=== PATIENT | male | born 1975 | race Caucasian/White ===

== ENCOUNTER 2020-02-13 11:46 | Outpatient (CLI) | payer BC, SELFPAY ==
[2020-02-13 12:36] LABS: SARS-CoV-2 Ag Positive (Negative)
== END 2020-02-13 11:47 | disposition home or self-care (01) ==
LOC: CHSLAB 11:53
PROVIDERS: PCP Internal Medicine; Visit Provider Internal Medicine
DX: U07.1 COVID-19 (principal)
CPT/HCPCS: 87426

== ENCOUNTER 2020-02-14 16:30 | Emergency (ER) | payer BC, SELFPAY ==
--- NOTE | ~2020-02-14 | CT_ITS ---
EXAMINATION: CT brain wo con DATE: 02/14/2020 18:22 INDICATION: Right eye swelling. TECHNIQUE: Computed tomography (CT) of the head was performed without intravenous contrast. Sagittal and coronal reconstructions were performed. The mA was adjusted according to patient size. Iterative reconstruction technique was employed. The dose-length product was 605.33 mGy-cm. COMPARISON: None FINDINGS: No acute intracranial hemorrhage, acute infarction or abnormal extra axial fluid collection. Ventricl es are normal and symmetric. No mass/mass effect. Right vertebral artery is dominant. Old right orbit al blowout fracture with depression of a portion of the inferior orbital wall which appears unchanged since CT neck dated 03/06/2017. Orbits are otherwise normal. Hyperpneumatized right frontal sinus. R emainder of the paranasal sinuses and the bilateral middle ear cavities and mastoid air cells are dory ar. IMPRESSION: 1. 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 Otherwise unremarkable study with no acute intracranial or intraorbital process. Reviewed, dictated and finalized at location . [employer] IMPRESSION: 1. 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 Otherwi se unremarkable study with no acute intracranial or intraorbital process.
[2020-02-14 17:35] VITALS: BP 145/82; PULSE 63; RESP 20; TEMP 36.8; O2SAT 100
--- NOTE | 2020-02-14 19:13 | ED.EYEPROB ---
HPI - Eye Problem General Chief complaint: Eye Problems Stated complaint: Eye pain Time Seen by Provider: 02/14/20 17:45 Source: patient Mode of arrival: ambulatory Limitations: no limitations History of Present Illness HPI Narrative: Patient comes in with a ptosis of the right eye. Severity is mild to moderate. This has developed over the past 2 days, and is ongoing. He come in with these concerns. Nothing has changed with him, although he has had a headache, and was diagnosed with Covid recently. Context: other (recent covid diagnosis. ) Related Data Home Medications Medication Instructions Recorded Confirmed albuterol sulfate [Ventolin HFA] 1 - 2 puff INHALATION QID 02/14/20 02/14/20 atenolol 25 mg PO DAILY 02/14/20 02/14/20 losartan-hydrochlorothiazide 1 tablet PO DAILY 02/14/20 02/14/20 montelukast 10 mg PO DAILY 02/14/20 02/14/20 omeprazole 40 mg PO DAILY 02/14/20 02/14/20 simvastatin 20 mg PO DAILY 02/14/20 02/14/20 venlafaxine 75 mg PO DAILY 02/14/20 02/14/20 Allergies Allergy/AdvReac Type Severity Reaction Status Date / Time No Known Allergies Allergy Unverified 09/09/11 12:17 Review of Systems Constitutional: Constitutional: Reports no additional constitutional complaints Eyes: Eyes: Reports no additional eye complaints ENT: Reports system reviewed and no additional complaints, except as documented Cardiovascular: Cardiovascular: Reports no additional cardiovascular complaints Respiratory: Respiratory: Reports no additional respiratory complaints Gastrointestinal: Gastrointestinal: Reports no additional gastrointestinal complaints Genitourinary: Genitourinary: Reports no additional male genitourinary complaints Musculoskeletal: Musculoskeletal: Reports no additional musculoskeletal complaints Integumentary/Breasts: Skin/Breast: Reports system reviewed and no additional complaints, except as docu Neurologic: Reports system reviewed and no additional complaints, except as documented Psychiatric: Psychiatric: Reports no additional psychiatric complaints Endocrine: Endocrine: Reports no additional endocrine complaints Hematologic/Lymphatic: Hematologic/Lymphatic: Reports no additional hematologic/lymphatic complaints Allergic/Immunologic: Allergic/Immunologic: Reports no additional allergic/immunologic complaints PMFSH Past Medical History Medical History Hyperlipidemia Hypertension Surgical History Surgical History No significant past surgical history Exam Const: General: no acute distress HENMT: Other: Mild ptosis on right side. Eyes: Conjunctivae: conjunctivae normal EOM: EOMs intact bilaterally Other: normal acuity, Chest: Chest palpation & inspection: normal inspection of the chest Resp: Effort & Inspection: normal respiratory effort Auscultation: clear to auscultation bilaterally Cardio: Rate: regular rate Rhythm: regular rhythm GI: Auscultation: normal bowel sounds Back/Spine/Pelvis: Back: no CVA tenderness Skin: General skin exam: normal color Neuro: General: moves all extremities Other: No focal weakness in any other area, forehead or face noted. Extrem: General: normal to inspection Psych: Appearance: grossly normal Mental Status: mental status grossly normal Course Course Emergency Course: Ct head was reviewed. I discussed with him options. He decided on trying Dexamethasone 6mg daily for the next few days to see if that will help with the ptosis. He has Covid now, and the dexamethasone may help the Covid as well. We will send him home with 6 days of dexamethasone. Vital Signs Vital signs: Vital Signs Temperature 36.8 C 02/14/20 17:35 Pulse Rate 63 02/14/20 17:35 Respiratory Rate 20 02/14/20 17:35 Blood Pressure 145/82 H 02/14/20 17:35 Pulse Oximetry 100 02/14/20 17:35 Temperature 36.8 C 02/14/20 17:35
[2020-02-14 19:20] VITALS: RESP 16
== END 2020-02-14 19:20 | disposition home or self-care (01) ==
PROVIDERS: Emergency Provider Emergency Medicine; PCP Internal Medicine
DX: G51.0 Bell's palsy (principal)
CPT/HCPCS: 70450; 99283; 99284

== ENCOUNTER 2021-03-27 11:20 | Outpatient (CLI) | payer BC, SELFPAY ==
[2021-03-27 12:00] LABS: Influenza Control Valid (Valid)
[2021-03-27 12:06] LABS: SARS-CoV-2 Ag Positive (Negative)
== END 2021-03-27 11:21 | disposition home or self-care (01) ==
LOC: CHSLAB 11:22
PROVIDERS: PCP Internal Medicine; Visit Provider Internal Medicine
DX: U07.1 COVID-19 (principal); J06.9 Acute upper respiratory infection, unspecified
CPT/HCPCS: 87081; 87426; 87804; 87880; C9803

== ENCOUNTER 2023-04-04 02:17 | Emergency (ER) | payer BC, SELFPAY ==
[2023-04-04 02:17] VITALS: BP 159/99; PULSE 106; RESP 20; TEMP 36.8; O2SAT 96
--- NOTE | 2023-04-04 02:35 | ED.GENADULT ---
HPI - General Adult General Chief complaint: Unspecified Stated complaint: rash Source: patient Mode of arrival: ambulatory Limitations: no limitations History of Present Illness HPI narrative: Patient is a 47 year old male with a significant PMH that presents today bc of a rash on his face. He gets small fever blisters' on areas around his mouth and uses some strange lotion for this and it apparently does not really help because it takes them 10 days to go away. He was given mupericin ointment this morning at urgent care and this made his face break out and more blisters appeared. He is most likely allergic to this. Onset (ago): day(s) Location: face Radiation: non-radiation Severity: mild Quality: burning Pain Consistency: constant Relieving factors: none Exacerbating factors: none Associated symptoms: denies other symptoms Treatments prior to arrival: none Related Data Home Medications Medication Instructions Recorded Confirmed albuterol sulfate 90 mcg/actuation 1 - 2 puff inhalation QID 02/14/20 04/04/23 aerosol inhaler (Ventolin HFA) atenolol 25 mg tablet 25 mg PO DAILY 02/14/20 04/04/23 losartan 50 mg-hydrochlorothiazide 1 tablet PO DAILY 02/14/20 04/04/23 12.5 mg tablet montelukast 10 mg tablet 10 mg PO DAILY 02/14/20 04/04/23 omeprazole 40 mg capsule,delayed 40 mg PO DAILY 02/14/20 04/04/23 release simvastatin 20 mg tablet 20 mg PO DAILY 02/14/20 04/04/23 venlafaxine 75 mg capsule,extended 75 mg PO DAILY 02/14/20 04/04/23 release 24 hr Allergies Allergy/AdvReac Type Severity Reaction Status Date / Time No Known Allergies Allergy Unverified 09/09/11 12:17 Review of Systems Review of Systems: All systems reviewed & are unremarkable except as noted in HPI and below Constitutional: Constitutional: Reports no additional constitutional complaints Eyes: Eyes: Reports no additional eye complaints ENT: Comments: small mild few blisters around the mouth, do not resemble rsv Cardiovascular: Cardiovascular: Reports no additional cardiovascular complaints Respiratory: Respiratory: Reports no additional respiratory complaints Gastrointestinal: Gastrointestinal: Reports no additional gastrointestinal complaints Genitourinary: Genitourinary: Reports no additional male genitourinary complaints Musculoskeletal: Musculoskeletal: Reports no additional musculoskeletal complaints Integumentary/Breasts: Skin/Breast: Reports system reviewed and no additional complaints, except as docu Neurologic: Reports system reviewed and no additional complaints, except as documented Psychiatric: Psychiatric: Reports no additional psychiatric complaints Endocrine: Endocrine: Reports no additional endocrine complaints Hematologic/Lymphatic: Hematologic/Lymphatic: Reports no additional hematologic/lymphatic complaints Allergic/Immunologic: Allergic/Immunologic: Reports no additional allergic/immunologic complaints PMFSH Past Medical History Medical History Hyperlipidemia Hypertension Surgical History Surgical History No significant past surgical history Exam Const: General: cooperative and healthy appearing Nutritional Appearance: average body habitus Orientation/consciousness: oriented to person Limitations: no limitations HENMT: Head: normal to inspection Ears: hearing grossly normal bilaterally Face/Nose/Sinus: Normal external nose present Face and sinus: other (2 small blisters around mouth) Mouth: Yes Normal oral and palatal mucosa present Teeth and gingiva: dentition normal Throat: posterior oropharynx normal Eyes: General: appearance normal, both eyes and all related structures Visual Cobb: normal visual cobb by confrontation Alignment and Position: alignment normal Periorbital: periorbital findings normal Neck: Neck: normal visual inspection Thyroid: thyroid normal Ibarra
== END 2023-04-04 02:54 | disposition home or self-care (01) ==
PROVIDERS: Emergency Provider Family Medicine; PCP Internal Medicine
DX: S00.82XA Blister (nonthermal) of other part of head, initial encounter (principal); E78.5 Hyperlipidemia, unspecified; I10 Essential (primary) hypertension; Z79.899 Other long term (current) drug therapy; X58.XXXA Exposure to other specified factors, initial encounter
CPT/HCPCS: 96372; 99283; J1100

== ENCOUNTER 2023-06-04 00:13 | Day surgery (SDC) | payer BC, SELFPAY ==
[2023-05-25 15:09] VITALS: BMI 31.5
--- NOTE | 2023-06-02 09:13 | SUR.PREOP ---
Patient called regarding upcoming procedure. Reviewed preop instructions, appointment times, and procedure prep.
[2023-06-04 06:49] VITALS: BP 141/84; PULSE 69; RESP 18; TEMP 36.6; O2SAT 97
[2023-06-04] MEDS: LACTATED RINGERS 1,000 ML 150 ML IV CONT (07:03)
--- NOTE | 2023-06-04 07:31 | PM.IMHP ---
H&P: HPI History of Present Illness Date/Time: 06/04/23 07:31 Chief Complaint: Screening for colorectal cancer Narrative: this is a 47-year-old man who presents for colonoscopy. He last had a colonoscopy about 10 or 12 years ago and this was normal. This was done for some perianal irritation. He denies any blood in his stool. He denies any first-degree relatives with history of colon cancer. He does think he had a distant great uncle who had cancer. Review of Systems Review of Systems: All systems reviewed & are unremarkable except as noted in HPI and below Constitutional: Constitutional: Denies chills, Denies fever(s), Denies headache(s) and Denies weight loss Eyes: Eyes: Denies change in vision ENT: Denies dizziness, Denies headache(s), Denies neck mass and Denies throat swelling Cardiovascular: Cardiovascular: Denies chest pain, Denies lightheadedness and Denies dyspnea Respiratory: Respiratory: Denies cough, Denies dyspnea and Denies wheezing Gastrointestinal: Gastrointestinal: Denies abdominal pain, Denies change in bowel habits, Denies nausea and Denies vomiting Genitourinary: Genitourinary: Denies hematuria and Denies dysuria Musculoskeletal: Musculoskeletal: Reports as per HPI Integumentary/Breasts: Skin/Breast: Reports as per HPI Neurologic: Denies dizziness and Denies headache(s) Allergic/Immunologic: Allergic/Immunologic: Denies throat swelling and Denies wheezing [facility] Past Medical History Medical History (Updated 06/04/23 @ 07:32 by Miguel Angel Torre DO) Hyperlipidemia Hypertension Surgical History Surgical History (Updated 06/04/23 @ 07:32 by Miguel Angel Torre DO) Hx of appendectomy Social History Social History Substance use: current Substance use type: marijuana Meds Home Medications and Allergies Home Medications Medication Instructions Recorded Confirmed Type albuterol sulfate 90 mcg/actuation 1 - 2 puff inhalation QID 02/14/20 05/25/23 History aerosol inhaler (Ventolin HFA) atenolol 25 mg tablet 25 mg PO DAILY 02/14/20 05/25/23 History dexamethasone 4 mg tablet 6 mg PO DAILY #9 tabs 02/14/20 05/25/23 Rx losartan 50 mg-hydrochlorothiazide 1 tablet PO DAILY 02/14/20 05/25/23 History 12.5 mg tablet montelukast 10 mg tablet 10 mg PO DAILY 02/14/20 05/25/23 History (Singulair) omeprazole 40 mg capsule,delayed 40 mg PO DAILY 02/14/20 05/25/23 History release simvastatin 20 mg tablet 20 mg PO DAILY 02/14/20 05/25/23 History venlafaxine 75 mg capsule,extended 75 mg PO DAILY 02/14/20 05/25/23 History release 24 hr (Effexor XR) triamcinolone acetonide 0.5 % 1 applic topical BID #15 grams 04/04/23 05/25/23 Rx topical cream Allergies Allergy/AdvReac Type Severity Reaction Status Date / Time No Known Allergies Allergy Verified 06/04/23 06:49 Vital Signs Vital Signs - 24 hr 06/04/23 06:49 Temperature 36.6 C Pulse Rate 69 Respiratory Rate 18 Blood Pressure 141/84 H Pulse Oximetry 97 Oxygen Delivery Room Air Exam Const: General: no acute distress and alert Orientation/consciousness: patient oriented x3 HENMT: Head: normocephalic and atraumatic Ears: hearing grossly normal bilaterally Face/Nose/Sinus: Normal nares present Mouth: Yes Normal oral and palatal mucosa present Eyes: Periorbital: periorbital findings normal Sclera: sclerae normal EOM: EOMs intact bilaterally Neck: Neck: normal visual inspection, no lymphadenopathy and trachea midline Chest: Chest palpation & inspection: normal inspection of the chest Resp: Effort & Inspection: normal respiratory effort Auscultation: clear to auscultation bilaterally Cardio: Jugular venous distension: no JVD Rate: regular rate Rhythm: regular rhythm Heart sounds: S1 normal heart sound present and S2 normal heart sound present Peripheral pulses: Peripheral pulses 2+ throughout GI: Inspection: normal to inspection
--- NOTE | 2023-06-04 07:53 | WPDANESEPPF ---
Anes - Initial Pre Proc Eval Procedure: Operation Date: 06/04/23 08:00 Proposed Procedures p Screening Colonoscopy - Miguel Angel Torre DO Date/Time: 06/04/23 07:53 Surgeon: Miguel Angel Torre DO Pre Op Diagnosis: neoplasm screening Patient Data Age: 47 Gender: M Height: 1.83 m Weight: 102.3 kg Last Vital Signs Temp 97.8 F 06/04/23 06:49 Pulse 69 06/04/23 06:49 Resp 18 06/04/23 06:49 BP 141/84 H 06/04/23 06:49 Pulse Ox 97 06/04/23 06:49 O2 Del Method Room Air 06/04/23 06:49 Allergies Allergy/AdvReac Type Severity Reaction Status Date / Time No Known Allergies Allergy Verified 06/04/23 06:49 Home Medications Medication Instructions Recorded Confirmed Type albuterol sulfate 90 mcg/actuation 1 - 2 puff inhalation QID 02/14/20 05/25/23 History aerosol inhaler (Ventolin HFA) atenolol 25 mg tablet 25 mg PO DAILY 02/14/20 05/25/23 History dexamethasone 4 mg tablet 6 mg PO DAILY #9 tabs 02/14/20 05/25/23 Rx losartan 50 mg-hydrochlorothiazide 1 tablet PO DAILY 02/14/20 05/25/23 History 12.5 mg tablet montelukast 10 mg tablet 10 mg PO DAILY 02/14/20 05/25/23 History (Singulair) omeprazole 40 mg capsule,delayed 40 mg PO DAILY 02/14/20 05/25/23 History release simvastatin 20 mg tablet 20 mg PO DAILY 02/14/20 05/25/23 History venlafaxine 75 mg capsule,extended 75 mg PO DAILY 02/14/20 05/25/23 History release 24 hr (Effexor XR) triamcinolone acetonide 0.5 % 1 applic topical BID #15 grams 04/04/23 05/25/23 Rx topical cream Patient hx anesthesia problems: none Family hx anesthesia problems: none Results Review: All pre-operative results and documents have been reviewed as part of the pre-operative evaluation. [facility] Past Medical History Medical History (Updated 06/04/23 @ 07:32 by Miguel Angel Torre DO) Hyperlipidemia Hypertension Surgical History Surgical History (Updated 06/04/23 @ 07:32 by Miguel Angel Torre DO) Hx of appendectomy Social History Social History Substance use: current Substance use type: marijuana Anes - Eval Final PreProcedure Day of Procedure 06/04/23 07:53 Patient weight: obese Heart: regular rate and rhythm Lungs: clear to auscultation Airway: Mallampati scale class II Neurological: alert and oriented Last oral intake: >/= 8 hours ASA classification: III Emergent: no Anesthetic plan: proceed Anesthesia type and monitoring: general GIVS and standard monitoring Results Review: All pre-operative results and documents have been reviewed as part of the pre-operative evaluation. Informed Consent: The patient's anesthetic plan and its attendant risks and benefits were discussed with the patient/family/POA. Questions were solicited and answers provided to the satisfaction of the patient/family/POA.
[2023-06-04 08:33] VITALS: BP 120/84; PULSE 80; RESP 19; O2SAT 98
[2023-06-04 08:43] VITALS: BP 133/90; PULSE 74; RESP 22; O2SAT 100
[2023-06-04 08:53] VITALS: BP 134/79; PULSE 65; RESP 18; O2SAT 99
== END 2023-06-04 08:58 | disposition home or self-care (01) ==
PROVIDERS: PCP Internal Medicine; Visit Provider Surgery
PROC: 0DJD8ZZ Inspection of Lower Intestinal Tract, Via Natural or Artificial Opening Endoscopic (ICD-10-PCS; CPT 45378; principal; 2023-06-04 08:00)
DX: Z12.11 Encounter for screening for malignant neoplasm of colon (principal); K57.30 Diverticulosis of large intestine without perforation or abscess without bleeding; I10 Essential (primary) hypertension; E78.5 Hyperlipidemia, unspecified; F12.90 Cannabis use, unspecified, uncomplicated; E66.9 Obesity, unspecified; Z68.30 Body mass index [BMI] 30.0-30.9, adult; Z79.51 Long term (current) use of inhaled steroids; Z98.890 Other specified postprocedural states
CPT/HCPCS: 45378; J7120

== ENCOUNTER 2023-10-09 20:04 | Emergency (ER) | payer BC, SELFPAY ==
[2023-10-09] VITALS (9 sets, daily range): BP systolic 105–134; BP diastolic 51–87; PULSE 65–87; RESP 16–28; TEMP 36.8; O2SAT 91–98
--- NOTE | ~2023-10-09 | XR_ITS ---
XR chest 1V portable Ordering provider: Kieran Rodriguez MD History: 48 years Male with . chest pain . Comparison: February 27, 2017 FINDINGS: MEDIASTINUM: The cardiac silhouette is not enlarged. LUNGS: No effusion or pneumothorax. Bilateral prominent markings with interstitial thickening suggest jessica of pneumonitis. Edema cannot be excluded. Clinical correlation advised. OTHER: No free air under the diaphragm. Degenerative changes of the spine. IMPRESSION: Bilateral interstitial thickening suggestive of pneumonitis. Edema cannot be excluded. Reviewed, dictated and finalized at location A. IMPRESSION: Bilateral interstitial thickening suggestive of pneumonitis. Edema cannot be ex cluded.
--- NOTE | 2023-10-09 20:11 | ECG_ITS ---
Test Date: 2023-10-09 20:32:12 Measurements Intervals Weiner Rate: 66 P: 37 LA: 147 QRS: 27 QRSD: 100 T: -4 QT: 376 QTc: 396 Interpretive Statements SINUS RHYTHM VOLTAGE CRITERIA FOR LVH BORDERLINE ST-T WAVE ABNORMALITY- ANTEROLAT/INF LEADS BASELINE ARTIFACT- I, II, III, AVR, AVL, AVF, V4-V6 BORDERLINE ECG No previous ECG available for comparison Electronically Signed On 10-10-2023 08:54:58 CDT by Baldev Casillas D.O.
[2023-10-09] MEDS: KETOROLAC (*BKC) 60 MG/2 ML VIAL IM (20:13)
[2023-10-09] MEDS: MORPHINE SULFATE (*CRX) 2 MG/ML INJ IV PUSH (20:14)
--- NOTE | 2023-10-09 20:14 | PC.NURSE ---
xray at the bedside
--- NOTE | 2023-10-09 20:14 | ED.CHESTPAIN ---
HPI - Chest Pain General Chief Complaint: Shortness of Breath/Dyspnea Stated Complaint: shortness of breath Time Seen by Provider: 10/09/23 20:11 Source: patient Mode of arrival: ambulatory Limitations: no limitations History of Present Illness HPI narrative: Patient is a 48-year-old male with a significant past medical history that presents today for chest pain. Patient states yesterday he had a bad coughing spell and pulled the chest muscle and his left side of his chest. He states that it was hurting throughout the night however today he was driving to [employer] and he says that also and is started hurting a lot worse has very painful. He states right now his pain is 10/10. He says that it is palpable pain that is reproducible on the left side below the chest. He denies any cardiac history. He is not having shortness of breath when he is dyspneic from had to take shallow breaths from the pain. MD complaint: chest pain Onset (ago): day(s) Timing of current episode: episodic Prior episodes: No Onset: during rest and during exertion Pain location: left chest and parasternal Severity: severe Pain scale (0-10): 10 Quality: sharp Relieving factors: nothing Exacerbating factors: inspiration Associated symptoms: diaphoresis and dyspnea Treatment prior to arrival: none Risk Factors Coronary artery disease risk factors: none Thoracic aortic dissection risk factors: none Related Data Home Medications Medication Instructions Recorded Confirmed albuterol sulfate 90 mcg/actuation 1 - 2 puff inhalation QID 02/14/20 10/09/23 aerosol inhaler (Ventolin HFA) atenolol 25 mg tablet 25 mg PO DAILY 02/14/20 10/09/23 losartan 50 mg-hydrochlorothiazide 1 tablet PO DAILY 02/14/20 10/09/23 12.5 mg tablet montelukast 10 mg tablet 10 mg PO DAILY 02/14/20 10/09/23 (Singulair) omeprazole 40 mg capsule,delayed 40 mg PO DAILY 02/14/20 10/09/23 release simvastatin 20 mg tablet 20 mg PO DAILY 02/14/20 10/09/23 venlafaxine 75 mg capsule,extended 75 mg PO DAILY 02/14/20 10/09/23 release 24 hr (Effexor XR) Allergies Allergy/AdvReac Type Severity Reaction Status Date / Time Sulfa (Sulfonamide AdvReac Rash Verified 06/04/23 08:10 Antibiotics) Review of Systems Review of Systems: All systems reviewed & are unremarkable except as noted in HPI and below Constitutional: Constitutional: Reports as per HPI Eyes: Eyes: Reports no additional eye complaints ENT: Reports system reviewed and no additional complaints, except as documented Cardiovascular: Cardiovascular: Reports no additional cardiovascular complaints Respiratory: Respiratory: Reports no additional respiratory complaints Gastrointestinal: Gastrointestinal: Reports no additional gastrointestinal complaints Genitourinary: Genitourinary: Reports no additional male genitourinary complaints Musculoskeletal: Musculoskeletal: Reports as per HPI and Reports muscle cramps Comments: Costochondritis Integumentary/Breasts: Skin/Breast: Reports system reviewed and no additional complaints, except as docu Neurologic: Reports system reviewed and no additional complaints, except as documented Psychiatric: Psychiatric: Reports no additional psychiatric complaints Endocrine: Endocrine: Reports no additional endocrine complaints Hematologic/Lymphatic: Hematologic/Lymphatic: Reports no additional hematologic/lymphatic complaints Allergic/Immunologic: Allergic/Immunologic: Reports no additional allergic/immunologic complaints PMFSH Past Medical History Medical History Hyperlipidemia Hypertension Surgical History Surgical History Hx of appendectomy Social History Social History Substance use: current Substance use type: marijuana Exam Const: General: healthy appearing, no acute distress and
[2023-10-09 20:23] LABS: Basophils Absolute Auto 0.09 K/mm3 (0.00-0.10); Basophils Percent Auto 0.6 % (0.0-1.0); Eosinophils Absolute Auto 0.09 K/mm3 (0.02-0.50); Eosinophils Percent Auto 0.6 % (1.0-6.0); Hematocrit 41.4 % (40.0-54.0); Hemoglobin 14.7 g/dL (14.0-18.0); Immature Granulocyte Absolute 0.05 K/mm3 (0.00-0.00); Immature Granulocyte Percent A 0.4 % (0.0-0.0); Lymphocytes Absolute Auto 3.61 K/mm3 (1.10-4.50); Lymphocytes Percent Auto 25.4 % (18.0-42.0); Mean Corpuscular HGB Conc 35.5 g/dL (32-36); Mean Corpuscular Hemoglobin 30.2 pg (27.0-31.0); Mean Corpuscular Volume 85.2 fL (78.0-102.0); Mean Platelet Volume 10.2 fl (8.7-11.0); Monocytes Absolute Auto 1.57 K/mm3 (0.10-0.90); Neutrophils Absolute Auto 8.82 K/mm3 (1.70-7.20); Platelet Count Result 300 K/mm3 (150-420); Red Blood Count 4.86 M/mm3 (4.70-6.10); Red Cell Distribution Width 12.6 % (11.6-14.4); White Blood Count 14.2 K/mm3 (4.8-10.8)
[2023-10-09] MEDS: NITROGLYCERIN SL 0.4 MG TABLET SUBLINGUAL (20:24)
--- NOTE | 2023-10-09 20:28 | PC.NURSE ---
patient is less restless and diaphoretic at this time. able to get accurate blood pressure and place on swatch folder. EKG in progress at this time by Natalie walden
[2023-10-09 20:33] LABS: D Dimer 0.32 mg/L (0.19-0.50)
[2023-10-09 20:38] LABS: Alanine Aminotransferase 20 U/L (16-63); Albumin Level 4.1 g/dL (3.4-5.0); Alkaline Phosphatase 65 U/L (46-116); Anion Gap 13 mmol/L (4-12); Aspartate Amino Transferase 18 U/L (15-37); Bilirubin,Total 0.4 mg/dL (0.00-1.00); Blood Urea Nitrogen 17 mg/dL (7-18); Calcium 9.4 mg/dL (8.5-10.1); Carbon Dioxide 23 mmol/L (21-32); Chloride 98 mmol/L (98-108); Estimated CRCL calculation 83 ml/min; Estimated Glomerular Filt Rate > 60; Glucose 126 mg/dL (70-99); Osmolality Calculated 281 mOsm/kg (285-295); Potassium 3.6 mmol/L (3.5-5.1); Sodium 134 mmol/L (136-145); Total Protein 7.8 g/dL (6.4-8.2); Troponin I < 4.0 ng/L (0.00-60.4)
--- NOTE | 2023-10-09 20:44 | PC.NURSE ---
with permission from er provider, patient was notified that tests all look good. patient reports that he is starting to feel better but gets spasms on left side when he takes a good breath . occasional moaning from spasms.
[2023-10-09] MEDS: CYCLOBENZAPRINE HCL 10 MG TABLET PO (20:52)
[2023-10-09] MEDS: SODIUM CHLORIDE 0.9% IV 1,000 ML 999 ML IV CONT (20:54)
--- NOTE | 2023-10-09 20:58 | PC.NURSE ---
IVF started to right ac iv site. informed patient to keep right arm straight so IVF could infuse. patient verbalized understanding
--- NOTE | 2023-10-09 21:39 | PC.NURSE ---
patient reports that he is feeling better. er provider notified
[2023-10-09] MEDS: dexAMETHasone SOD PHOS INJ 10 MG/ML 1 ML VIAL IM (22:05)
== END 2023-10-09 22:18 | disposition home or self-care (01) ==
PROVIDERS: Emergency Provider Family Medicine; PCP Internal Medicine
DX: M94.0 Chondrocostal junction syndrome [Tietze] (principal); I10 Essential (primary) hypertension; E78.5 Hyperlipidemia, unspecified; Z79.899 Other long term (current) drug therapy
CPT/HCPCS: 36415; 71045; 80053; 84484; 85025; 85380; 93005; 96361; 96372; 96374; 99284; A9270; J1100; J1885; J2270; J7030